=== PATIENT | female | born 1975 ===

== ENCOUNTER 2024-11-25 10:45 | Inpatient (IN) | payer OTHER ==
[~2024-11-25] VITALS: Ht 165.1 cm; Wt 62.6 kg
[2024-11-25] MEDS ORDERED: CRESTOR40 MG (11:44)
[2024-11-25 11:45] VITALS: BP 107/69
[2024-11-25] MEDS ORDERED: TAMOXIFEN CITRA10 MG (11:45)
[2024-11-25 11:48] VITALS: BP 129/81
[2024-11-28] MEDS ORDERED: CLINDAMYCIN PHOSPHATE 150 MG/ML (600mg) IV ONE (15:15)
[2024-11-28] MEDS ORDERED: POVIDONE-IODINE 118 ML BOTT TOP ONE (15:15)
[2024-11-28] MEDS ORDERED: BUPIVACAINE HCL 30 ML VIAL IJ ONE (15:15)
[2024-11-28] MEDS ORDERED: METRONIDAZOLE/SODIUM CHLORIDE 500 MG/100 ML PIGGYBACK IV ONE (15:15)
[2024-11-28] MEDS ORDERED: HEMOSTATIC MATRIX 1 KIT KIT TOP ONE (16:00)
[2024-11-28] MEDS ORDERED: SURGIFLO APPLICATOR 1 EACH APPL TOP ONE (16:00)
[2024-11-28] MEDS ORDERED: RINGERS SOLUTION,LACTATED 1,000 ML IV SCH (16:15)
[2024-11-28] MEDS ORDERED: OxyCODONE HCL 5 MG TABLET (ROXICODONE) PO PRN (16:15)
[2024-11-28] MEDS ORDERED: KETOROLAC TROMETHAMINE 30 MG VIAL IV SCH (17:00)
[2024-11-28] MEDS ORDERED: METOCLOPRAMIDE HCL 5 MG/ML VIAL IV SCH (17:00)
[2024-11-28] MEDS ORDERED: CLINDAMYCIN PHOSPHATE 150 MG/ML (600mg) IV SCH (17:00)
[2024-11-28] MEDS ORDERED: KETOROLAC TROMETHAMINE 30 MG VIAL IV NR (17:05)
[2024-11-28] MEDS ORDERED: ACETAMINOPHEN 500 MG GEL..CAP PO SCH (18:00)
[2024-11-28 20:28] LABS: BASO % 0.1 % (0.1-1.2); EOS # 0.00 (0.04-0.54); EOS % 0.0 % (0.7-7.0); LYMPH # 0.47 (1.18-3.74); LYMPH % 3.9 % (19.3-53.1); MEAN PLATELET VOLUME 10.50 fl (9.4-12.4); MONO # 0.43 (0.24-0.82); MONO % 3.6 % (4.7-12.5); NEUT # 11.05 (1.56-6.13); NEUT % 92.1 % (34.0-71.1); RED CELL DISTRIBUTION WIDTH 12.5 % (11.6-14.4)
[2024-11-28 20:30] VITALS: BP 107/69
[2024-11-28 20:46] LABS: GLUCOSE FASTING 148.0 mg/dL (65-100); OSMOLALITY SERUM 284.0 MOSM/KG (275-295)
[2024-11-28 20:49] LABS: BUN CREA RATIO 8.0 (7.0-25.0); CREATININE SERUM 0.83 mg/dL (0.55-1.02); GFR 73.69
[2024-11-28] MEDS ORDERED: FAMOTIDINE/PF 20 MG/2 ML VIAL IV PUSH SCH (21:00)
[2024-11-28] MEDS ORDERED: DOCUSATE SODIUM 100MG CAP PO SCH (21:00)
[2024-11-28] MEDS ORDERED: SIMETHICONE 125 MG CAPSULE PO SCH (21:00)
[2024-11-28] MEDS ORDERED: GABAPENTIN 300 MG CAPSULE PO SCH (21:00)
[2024-11-29 00:48] VITALS: BP 95/65; O2SAT 98
[2024-11-29 02:42] LABS: BASO % 0.1 % (0.1-1.2); EOS # 0.00 (0.04-0.54); EOS % 0.0 % (0.7-7.0); LYMPH # 0.73 (1.18-3.74); LYMPH % 8.6 % (19.3-53.1); MEAN PLATELET VOLUME 10.90 fl (9.4-12.4); MONO # 0.47 (0.24-0.82); MONO % 5.5 % (4.7-12.5); NEUT # 7.27 (1.56-6.13); NEUT % 85.6 % (34.0-71.1); RED CELL DISTRIBUTION WIDTH 12.6 % (11.6-14.4)
[2024-11-29 03:04] LABS: BUN CREA RATIO 10.0 (7.0-25.0); CREATININE SERUM 0.58 mg/dL (0.55-1.02); GFR 111.43; GLUCOSE FASTING 82.0 mg/dL (65-100); OSMOLALITY SERUM 287.0 MOSM/KG (275-295)
[2024-11-29 08:49] VITALS: BP 107/63; O2SAT 96
[2024-11-29] MEDS ORDERED: ENOXAPARIN SODIUM 40 MG/0.4 ML SYRINGE SUBCUTANEO SCH (09:00)
== END 2024-11-29 12:09 | disposition home or self-care (01) | DRG 743 ==
LOC: OB/GYN 11-28 07:00 → O/R 11-28 12:27 → OB/GYN 11-28 15:13 → O/R 11-28 15:15 → OB/GYN 11-28 17:15
PROVIDERS: ADMIT Obstetrics & Gynecology; ATTEND Obstetrics & Gynecology
PROC: 0UT74ZZ Resection of Bilateral Fallopian Tubes, Percutaneous Endoscopic Approach (ICD-10-PCS; 2024-11-28)
PROC: 0USG4ZZ Reposition Vagina, Percutaneous Endoscopic Approach (ICD-10-PCS; 2024-11-28)
PROC: 0UT94ZZ Resection of Uterus, Percutaneous Endoscopic Approach (ICD-10-PCS; principal; 2024-11-28 07:00)
DX: D25.1 Intramural leiomyoma of uterus (principal); N93.9 Abnormal uterine and vaginal bleeding, unspecified